=== PATIENT | female | born 1970 | race Caucasian/White ===

== ENCOUNTER 2016-12-17 11:12 | Emergency (ER) | payer SELFPAY ==
[~2016-12-17] VITALS: Ht 175.3 cm; Wt 109.9 kg
[2016-12-17 11:20] VITALS: BP 128/79; PULSE 76; RESP 16; TEMP 98.1; O2SAT 99
[2016-12-17] MEDS ORDERED: PROPARACAINE HCL 0.5% OPHT SOLN 15 ML BTL RIGHT EYE ONE (11:30)
--- NOTE | 2016-12-17 11:45 | PD ---
HPI Chief Complaint: Eye Problems/Injury Time Seen by Provider: 11:41 Travel History International Travel<30 days: No Contact w/Intl Traveler<30days: No Traveled to known affect area: No History of Present Illness HPI 46-year-old female patient presents to the ER today for 1 week history of flashing lights in her right eye, and over last 2 days has noticed a C-shaped shadowing in her visual field. She has also noticed some reddish discoloration in the visual field. She has been having eye pain bilaterally for several months but states it worsened in the last week as well. She denies any injury, eye irritation, or any other issues. She denies previous history of eye problems. Modifying Factors: None Associated Signs & Symptoms: Right eye flashes of light, C-shaped visual field defect in the right eye, eye pain Risk Factors: None PFSH Past Medical History Medical History: Denies Significant Hx Diminished Hearing: No Tetanus Vaccination: Unknown Influenza Vaccination: No ?: Not Past Surgical History Section: Yes Hysterectomy: Yes Social History Alcohol Use: No Tobacco Use: No Substance Use: No Allergies-Medications (Allergen,Severity, Reaction): Coded Allergies: No Known Allergies (Unverified , 12/17/16) Reported Meds & Prescriptions Reported Meds & Active Scripts Active No Active Prescriptions or Reported Medications Review of Systems Except as stated in HPI: all other systems reviewed are Neg Physical Exam Narrative GENERAL: Well-nourished, well-developed middle age white female patient in mild distress. Awake and oriented 3. SKIN: Focused skin assessment warm/dry. HEAD: Normocephalic. EYES: No scleral icterus. No injection or drainage. No hyphema. And on dilated ocular exam shows no obvious signs of retinal bleeds. However, exam is fairly limited. Extraocular movements are intact. Pupils are equal, round, reactive to light bilaterally. Tonometry of the right eye shows pressures of 5 , 12, 15. NECK: Supple, trachea midline. No JVD or lymphadenopathy. CARDIOVASCULAR: Regular rate and rhythm without murmurs, gallops, or rubs. RESPIRATORY: Breath sounds equal bilaterally. No accessory muscle use. GASTROINTESTINAL: Abdomen soft, non-tender, nondistended. MUSCULOSKELETAL: No cyanosis, or edema. BACK: Nontender without obvious deformity. No CVA tenderness. Data Data Last Documented VS Vital Signs Date Time Temp Pulse Resp B/P Pulse Ox O2 Delivery O2 Flow Rate FiO2 12/17/16 11:20 98.1 76 16 128/79 99 Orders Proparacaine 0.5% Opth Soln (Alcaine 0.5 (12/17/16 11:30) MDM Medical Decision Making Medical Screen Exam Complete: Yes Emergency Medical Condition: Yes Medical Record Reviewed: Yes Differential Diagnosis Right sided flashing lights, visual field defectretinal hemorrhages versus retinal detachment versus glaucoma Narrative Course Ocular pressures are fairly normal. Pupils are reactive to light. An undilated eye exam did not show an obvious hemorrhage although this is a fairly limited exam due to the fact that I am not able to pupil dilation. Case has been discussed with Dr. Will who would like to have the patient follow-up in her office. Return for any worsening in symptoms as needed. The plan has discussed with patient and she states understanding. Diagnosis Primary Impression: Visual field defect, unspecified Referrals: Jacki Will MD [phone] Scripts No Active Prescriptions or Reported Meds Disposition: 01 DISCHARGE HOME Condition: Stable Dominik Simons MD Dec 17, 2016 11:45
== END 2016-12-17 12:07 | disposition home or self-care (01) ==
LOC: PHED 11:12
DX: H53.40 Unspecified visual field defects (principal)
CPT/HCPCS: 99282